=== PATIENT | male | born 1965 | race Caucasian/White ===

== ENCOUNTER 2023-03-28 10:13 | Emergency (ER) | payer OTHER ==
[~2023-03-28] VITALS: Ht 198.1 cm; Wt 135.0 kg
[2023-03-28] MEDS ORDERED: BACTRIM DS TAB1 EACH PO (10:59)
[2023-03-28 11:06] VITALS: BP 151/81
== END 2023-03-28 11:05 | disposition home or self-care (01) ==
LOC: ED 10:13
DX: L03.116 Cellulitis of left lower limb (principal); M10.9 Gout, unspecified; Z88.0 Allergy status to penicillin; Z88.5 Allergy status to narcotic agent; Z88.6 Allergy status to analgesic agent; Z86.14 Personal history of Methicillin resistant Staphylococcus aureus infection
CPT/HCPCS: 99283

== ENCOUNTER 2024-06-29 08:58 | Day surgery (SDC) | payer OTHER ==
[~2024-06-29] VITALS: Ht 198.1 cm; Wt 129.1 kg
[~2024-06-29 08:58] MED LIST: BACTRIM DS TAB1 EACH PO; CYCLOBENZAPRINE10 MG PO; GABAPENTIN600 MG PO; IBLOOD GLUCOSE TEST STRIP 1 EA TEST VI PRN; LACTATED RINGER'S 1,000 ML IV SCH; LIDOCAINE HCL 1% 5 ML SDV INJ ONE; OXYMETAZOLINE HCL 30 ML BTL NAS SCH; VIAGRA25 MG PO
[2024-06-29] MEDS ORDERED: CLINDAMYCIN HC300 MG PO (09:17)
[2024-06-29 09:19] VITALS: BP 134/99
[2024-06-29] MEDS ORDERED: ondansetron HCL 4 MG/2 ML VIAL ONE (09:51)
[2024-06-29] MEDS ORDERED: fentaNYL citrate 100 MCG/2 ML VIAL ONE (09:51)
[2024-06-29] MEDS ORDERED: DEXAMETHASONE SOD PHOS 4 MG/ML VIAL ONE (09:51)
[2024-06-29] MEDS ORDERED: LIDOCAINE HCL 2% 5 ML SDV ONE (09:51)
[2024-06-29] MEDS ORDERED: propofoL 200 MG/20 ML VIAL ONE (09:51)
[2024-06-29] MEDS ORDERED: ACETAMINOPHEN 1,000 MG/100 ML VIAL ONE (09:53)
[2024-06-29] MEDS ORDERED: METOCLOPRAMIDE HCL 10 MG/2 ML SDV ONE (10:02)
[2024-06-29] MEDS ORDERED: fentaNYL citrate 50 MCG/ML SDV IV PRN (10:30)
[2024-06-29] MEDS ORDERED: ondansetron HCL 4 MG/2 ML VIAL IV PRN (10:30)
[2024-06-29] MEDS ORDERED: NALOXONE HCL 0.4 MG SYR IV PRN (10:30)
[2024-06-29] MEDS ORDERED: IBLOOD GLUCOSE TEST STRIP 1 EA TEST VI PRN (10:30)
--- NOTE | 2024-06-29 10:43 | NUR ---
06/29/24 Mary3 Erin Blevins 1035-PATIENT ARRIVED TO PACU ON RA PLACED ON 6L MASK 92% AROUSES TO VERBAL STIMULI ENCOURAGED DEEP BREATHES PATIENT IS VERY DROWSY O2 SAT INCREASED TO 96%. IVF INFUSING. AFIB HR RANGING 115-130. PACKING TO RIGHT NARE INTACT. 1042-PATIENT ON 6L MASK 97% AFIB HR 102. PATIENT SLEEPING AROUSES TO VERBAL STIMULI WITH EYES CLOSED DENIES PAIN OR NAUSEA MUMBLES "WANT SOME COFFEE" DISCUSSED WAITNG UNTIL PATIENT WAKES UP. PATIENT DOZES BACK TO SLEEP DOES SNORE.
[2024-06-29 11:15] VITALS: BP 107/60
--- NOTE | 2024-06-29 11:27 | NUR ---
1115: PATIENT BACK IN DAY SURGERY ROOM FROM PACU. DENIES PAIN AT SURGICAL AREA. NASAL PACKING IN PLACE. TAPED TO RIGHT SIDE OF FACE. VS CHECKED. IV SITE WNL. SCDs ON. GIVEN COFFEE AND CRACKERS. CALL LIGHT WITHIN REACH.
--- NOTE | 2024-06-29 11:37 | OR ---
[facility] [address] [facility] [place], [place] [address] Signed DATE OF OPERATION: 06/29/2024 SURGEON: Eddie Morocho MD PREOPERATIVE DIAGNOSIS: Right intranasal lesion. POSTOPERATIVE DIAGNOSIS: Right intranasal lesion. PROCEDURE: Excision of right intranasal lesion. ANESTHESIA: General LMA; SECRETARY ADMINISTRATIVE ASSISTANT, Flex. PREOPERATIVE HISTORY: Ramesh is a -[id number] man with a large right intranasal papilloma. This was obstructive, very uncomfortable, nearly completely obstructive of the nasal passage. No abnormalities on the left side. He was taken to the operating room for the above-mentioned procedures. PROCEDURE AND FINDINGS: After informed consent, the patient was taken to the operating room, placed in supine position where general LMA anesthesia was induced. The patient and previous procedure were verified. The patient received preoperative intranasal oxymetazoline. Headlight speculum exam of the nasal cavity showed no abnormalities on the left side. On the right side, nasal cavity was nearly completely filled with papillomatous mass, appeared to be based on the septum in the vestibule anteriorly and up on the superior portion of the vestibule and also laterally on the anterior portion of the inferior turbinate. The lesion was excised sharply with a scalpel cutting off papillomas at the base. The complete removal was managed in this manner, and the specimen sent to Pathology. Bleeding was controlled with suction cautery. No further papilloma was identified anywhere in the nasal cavity. Bleeding was minimal. Trimmed Merocel pack placed coated with Neosporin. Pharynx was suctioned clear of blood secretions. The patient was then awakened, extubated, transported to recovery room in good condition. No complications. BLOOD LOSS: Minimal. Electronically Signed By: EDDIE MOROCHO MD 06/29/24 1137 PATIENT NAME: RAMESH BLANCHARD OPERATIVE REPORT DATE OF : 65 REPORT #: [id number] PHYSICIAN: EDDIE MOROCHO MD PCP: GENEVIEVE HAYES REPORT IS CONFIDENTIAL AND NOT TO BE RELEASED WITHOUT AUTHORIZATION [facility] [address] [facility], [place] [address] Signed SPECIMEN: To Pathology one piece of packing, right nostril. DRAINS: None. COMPLICATIONS: None. Eddie Morocho MD GC/MODL /[id number] Copies: ~ Electronically Signed By: EDDIE MOROCHO MD 06/29/24 1137 PATIENT NAME: RAMESH BLANCHARD OPERATIVE REPORT DATE OF : 65 REPORT #: [id number] PHYSICIAN: EDDIE MOROCHO MD PCP: GENEVIEVE HAYES REPORT IS CONFIDENTIAL AND NOT TO BE RELEASED WITHOUT AUTHORIZATION
[2024-06-29 12:05] VITALS: BP 123/80
--- NOTE | 2024-06-29 12:23 | NUR ---
1145: PATIENT TOLERATED COFFEE AND CRACKERS. DISCHARGE INSTRUCTIONS GIVEN TO PATIENT. 1155: STAND BY ASSIST WHILE PATIENT GOT OOB AND DRESSED. NORMAL BASELINE GAIT FOR PATIENT WITH HIS CANE. STAND BY ASSIST WHILE PATIENT WALKED TO BATHROOM USING CANE. VOID WITHOUT DIFFICULTY. STAND BY ASSIST WHILE PATIENT WALKED BACK TO ROOM. 1205: VS CHECKED. IV SITE WNL. TIP INTACT. DRESSING APPLIED. 1210: PATIENT DISCHARGED TO HOME VIA WHEELCHAIR WITH .
--- NOTE | 2024-06-30 19:45 | EKG ---
[facility] [address] [facility] [place], [place] [address] Signed Atrial fibrillation Right axis deviation Possible Anterior infarct , age undetermined Abnormal ECG No previous ECGs available Confirmed by Felipe Golden MD ([id number]) on 06/30/2024 7:45:07 PM Electronically Signed By: FELIPE GOLDEN MD 06/30/241944 PATIENT NAME: RAMESH BLANCHARD Electrocardiogram DATE OF : 65 PHYSICIAN: FELIPE GOLDEN MD REPORT #: [id number] REPORT IS CONFIDENTIAL AND NOT TO BE RELEASED WITHOUT AUTHORIZATION
--- NOTE | 2024-07-01 11:14 | PATH ---
[facility] [address] [facility] [place], [place] [address] Signed SPECIMEN(S): A RIGHT NOSTRIL SPECIMEN SOURCE: A. RIGHT NOSTRIL v CLINICAL HISTORY: Intranasal papilloma FINAL PATHOLOGIC DIAGNOSIS: Right nostril: - Sinonasal papilloma, exophytic type BRP MICROSCOPIC EXAMINATION: Histologic sections of all submitted blocks are examined by light microscopy. These findings, together with the gross examination, support the pathologic diagnosis. GROSS DESCRIPTION: The specimen, labeled and designated "Juan Luis, S., right nostril per requisition," is received in formalin and consists of a 2.5 x 2.3 x 1.2 cm area of manrique-white papillary tissue fragments. The suspected resection margin is inked blue and the specimen is serially section revealing a white homogenous cut surface. The specimen is entirely submitted in cassette A1 through A2. AA (under the direct supervision of a pathologist) The Gross Description was prepared using a voice recognition system. The report was reviewed for accuracy; however, sound-alike word errors, addition and/or deletions may occur. If there is any question about this report, please contact Client Services. ADDITIONAL NOTES: Immunohistochemical and/or in situ hybridization studies if performed in this case included appropriate positive controls that reacted as expected. This test was developed and its performance characteristics determined by [facility]. It has not been cleared or approved by the U.S. Food and Drug Administration. The FDA has determined that such clearance or approval is not necessary. This test is used for clinical purposes. It should not be regarded as investigational or for research. [facility] is certified under the PATIENT NAME: RAMESH BLANCHARD PATHOLOGY DATE OF : 65 REPORT #: [id number] PHYSICIAN: ELIZABETH QUINONES PCP: GENEVIEVE HAYES REPORT IS CONFIDENTIAL AND NOT TO BE RELEASED WITHOUT AUTHORIZATION [facility] [address] [place] [address] Signed Clinical Laboratory Improvement Amendments of 1988 (CLIA) as qualified to perform high complexity clinical laboratory testing. PERFORMING LABORATORY: Technical component was performed by [facility], [address] [place] [address] (CLIA# [id number]). Professional interpretation was performed by [facility], [address] [place] [address] (CLIA#: [id number]). Diagnostician: Rene Robin MD Pathologist Electronically Signed 07/01/2024 Copies: ~ PATIENT NAME: RAMESH BLANCHARD PATHOLOGY DATE OF : 65 REPORT #: [id number] PHYSICIAN: ELIZABETH QUINONES PCP: GENEVIEVE HAYES REPORT IS CONFIDENTIAL AND NOT TO BE RELEASED WITHOUT AUTHORIZATION
== END 2024-06-29 12:10 | disposition home or self-care (01) ==
LOC: DS 08:58 → OPS 08:58
PROVIDERS: ATTEND Otolaryngology
PROC: 09BK0ZZ Excision of Nasal Mucosa and Soft Tissue, Open Approach (ICD-10-PCS; principal; 2024-06-29 10:00)
DX: D14.0 Benign neoplasm of middle ear, nasal cavity and accessory sinuses (principal); I10 Essential (primary) hypertension; I48.91 Unspecified atrial fibrillation; Z88.0 Allergy status to penicillin; Z88.8 Allergy status to other drugs, medicaments and biological substances
CPT/HCPCS: 00160; 88304; 88305; 93005; 93010; J0131; J1100; J2003; J2405; J2704; J2765; J3010; J7121

== ENCOUNTER 2024-08-10 20:18 | Emergency (ER) | payer OTHER ==
[~2024-08-10] VITALS: Ht 198.1 cm; Wt 103.1 kg
[~2024-08-10 20:18] MED LIST changes: +CLINDAMYCIN HC300 MG PO; -IBLOOD GLUCOSE TEST STRIP 1 EA TEST VI PRN; -LACTATED RINGER'S 1,000 ML IV SCH; -LIDOCAINE HCL 1% 5 ML SDV INJ ONE; -OXYMETAZOLINE HCL 30 ML BTL NAS SCH
[2024-08-10 20:40] LABS: BASOPHILS 1.1 % (0-2); EOSINOPHILS 1.7 % (0-6); HEMATOCRIT 48.4 % (35.0-50.0); HEMOGLOBIN 17.2 g/dL (12.0-18.0); LYMPHOCYTES 27.5 % (24-44); MCH 30.6 (27-36); MCHC 35.4 g/dl (30-36); MCV 86.3 fl (81-99); MONOCYTES 8.5 % (0-12); NEUTROPHILS 61.2 % (39-80); PLATELET COUNT 324 K/uL (140-440); RBC 5.61 M/ul (4.3-5.7); RDW 13.7 (10.5-15.0)
[2024-08-10] MEDS ORDERED: LACTATED RINGER'S 1,000 ML IV ONE (20:45)
[2024-08-10] MEDS ORDERED: KETOROLAC TROMETHAMINE 30 MG/ML VIAL IV ONE (20:45)
[2024-08-10] MEDS ORDERED: SODIUM CHLORIDE 0.9% 1,000 ML IV ONE (20:45)
[2024-08-10 20:49] LABS: ALBUMIN 4.2 g/dL (3.4-5.0); ANION GAP 15.1 (7-21); BILIRUBIN, TOTAL 0.6 mg/dL (0.2-1.0); BUN/CREATININE RATIO 8.66 (6.0-28.6); CALCIUM 9.5 mg/dL (8.5-10.1); CREATININE, SERUM 1.27 mg/dL (0.70-1.30); POTASSIUM 4.1 mmol/L (3.5-5.1); PROTEIN, TOTAL 8.4 g/dL (6.4-8.2)
[2024-08-10] MEDS ORDERED: KETOROLAC TROME10 MG PO (21:38)
[2024-08-10] MEDS ORDERED: FLOMAX0.4 MG PO (21:38)
[2024-08-10 21:45] LABS: BILIRUBIN, URINE POSITIVE (negative); BLOOD/HGB, URINE LARGE (Negative); KETONE, URINE TRACE (Negative); LEUK ESTERASE, URINE NEGATIVE (negative); NITRITE, URINE NEGATIVE (negative)
[2024-08-10] MEDS ORDERED: TAMSULOSIN HCL 0.4 MG CAP PO ONE (21:45)
[2024-08-10 21:49] LABS: EPITHELIAL CELLS, URINE SQUAMOUS 1+ /lpf (0-1+)
[2024-08-10 21:50] LABS: BACTERIA, URINE RARE /hpf (negative); CASTS, URINE NONE SEEN \\lpf; COLLECTION TYPE, URINE CLEAN CATCH; CRYSTALS, URINE NONE SEEN (0-1+); RED BLOOD CELLS, URINE >50 /hpf (0-5); REFLEX CULTURE, URINE No (No)
[2024-08-10 22:20] VITALS: BP 126/81
== END 2024-08-10 22:21 | disposition home or self-care (01) ==
LOC: ED 20:18
PROVIDERS: Internal Medicine
DX: N13.2 Hydronephrosis with renal and ureteral calculous obstruction (principal); Z88.0 Allergy status to penicillin; Z88.5 Allergy status to narcotic agent; I10 Essential (primary) hypertension
CPT/HCPCS: 36415; 74176; 80053; 81001; 83690; 85025; 96374; 99284-25; J1885; J7121

== ENCOUNTER 2024-08-22 06:27 | Emergency (ER) | payer OTHER ==
[~2024-08-22] VITALS: Ht 198.1 cm; Wt 120.8 kg
[~2024-08-22 06:27] MED LIST changes: +FLOMAX0.4 MG PO; +KETOROLAC TROME10 MG PO
--- OUTSIDE RECORDS SUMMARY | 2024-08-22 06:34 | XMS ---
PreManage Notification: RAMESH BLANCHARD Security Pile Driver Events No recent Security Events currently on file CRITERIA MET - [facility] - 2 Visits in 30 Days CARE PROVIDERS -, [facility] Dentist: Electro Mechanical Technologist [facility] PHONE: [phone] -[place]- Dentist: Electro Mechanical Technologist Current [facility] PHONE: [phone] [facility]: [facility] FAMILY PHONE: [phone] Michelle has no Care Guidelines for this patient. E.D. VISIT COUNT (12 MO.) 2 [facility] TOTAL 2 NOTE: Visits indicate total known visits. ED/UCC VISIT TRACKING (12 MO.) 08/22/2024 06:28 [facility] [place] TYPE: Emergency COMPLAINT: - ABDOMINAL PAIN 08/10/2024 20:19 [facility] [place] TYPE: Emergency COMPLAINT: - ABDOMINAL PAIN DIAGNOSES: - Allergy status to narcotic agent - Allergy status to penicillin - Essential (primary) hypertension - Hydronephrosis with renal and ureteral calculous obstruction - Left lower quadrant pain INPATIENT VISIT TRACKING (12 MO.) No inpatient visits to display in this time frame [email or web address]
[2024-08-22] MEDS ORDERED: ondansetron HCL 4 MG/2 ML VIAL IV ONE (06:45)
[2024-08-22] MEDS ORDERED: HYDROmorphone HCL 1 MG/ML SYR IV ONE ×2 (06:45→07:30)
[2024-08-22] MEDS ORDERED: SODIUM CHLORIDE 0.9% 1,000 ML IV ONE (06:45)
[2024-08-22 07:04] LABS: BASOPHILS 0.5 % (0-2); EOSINOPHILS 0.8 % (0-6); HEMATOCRIT 50.4 % (35.0-50.0); HEMOGLOBIN 17.7 g/dL (12.0-18.0); LYMPHOCYTES 12.8 % (24-44); MCH 30.4 (27-36); MCHC 35.1 g/dl (30-36); MCV 86.6 fl (81-99); MONOCYTES 5.4 % (0-12); NEUTROPHILS 80.5 % (39-80); PLATELET COUNT 330 K/uL (140-440); RBC 5.81 M/ul (4.3-5.7); RDW 13.8 (10.5-15.0)
[2024-08-22 07:20] LABS: ALBUMIN 4.3 g/dL (3.4-5.0); ALBUMIN/GLOBULIN RATIO 1.08 (1.1-2.4); ANION GAP 15.1 (7-21); BILIRUBIN, TOTAL 0.4 mg/dL (0.2-1.0); BUN/CREATININE RATIO 10.38 (6.0-28.6); CALCIUM 9.4 mg/dL (8.5-10.1); CREATININE, SERUM 1.54 mg/dL (0.70-1.30); POTASSIUM 4.1 mmol/L (3.5-5.1); PROTEIN, TOTAL 8.3 g/dL (6.4-8.2)
[2024-08-22] MEDS ORDERED: PROCHLORPERAZINE EDISYLATE 10 MG/2 ML VIAL IV ONE (07:30)
[2024-08-22 08:35] LABS: BILIRUBIN, URINE NEGATIVE (negative); BLOOD/HGB, URINE LARGE (Negative); KETONE, URINE NEGATIVE (Negative); LEUK ESTERASE, URINE NEGATIVE (negative); NITRITE, URINE NEGATIVE (negative)
[2024-08-22 08:42] LABS: BACTERIA, URINE RARE /hpf (negative); CASTS, URINE HYALINE 2+ \\lpf; CRYSTALS, URINE CALCIUM OXALATE 1+ (0-1+); EPITHELIAL CELLS, URINE SQUAMOUS 1+ /lpf (0-1+)
[2024-08-22 08:43] LABS: COLLECTION TYPE, URINE CLEAN CATCH; REFLEX CULTURE, URINE No (No)
[2024-08-22] MEDS ORDERED: HYDROCODON-ACE1 EA10 PO (09:01)
[2024-08-22] MEDS ORDERED: FLOMAX0.4 MG PO (09:01)
[2024-08-22 09:03] VITALS: BP 113/81
== END 2024-08-22 09:03 | disposition home or self-care (01) ==
LOC: ED 06:27
PROVIDERS: Family Medicine
DX: R10.9 Unspecified abdominal pain (principal); I10 Essential (primary) hypertension; Z79.899 Other long term (current) drug therapy; Z88.5 Allergy status to narcotic agent; Z88.6 Allergy status to analgesic agent; Z88.0 Allergy status to penicillin
CPT/HCPCS: 36415; 74176; 80053; 81001; 85025; 96374; 96375; 96376; 99284-25; J0780; J1171; J2405; J7030

== ENCOUNTER 2024-12-27 08:52 | Emergency (ER) | payer OTHER ==
[~2024-12-27] VITALS: Ht 198.1 cm; Wt 120.8 kg
[~2024-12-27 08:52] MED LIST changes: +HYDROCODON-ACE1 EA10 PO
[2024-12-27] MEDS ORDERED: CIALIS5 MG PO (09:34)
[2024-12-27] MEDS ORDERED: COLCHICINE 0.6 MG TAB PO ONE (09:45)
[2024-12-27] MEDS ORDERED: ACETAMINOPHEN 500 MG TAB PO ONE (09:45)
[2024-12-27] MEDS ORDERED: HYDROCODON-ACE1 EA11 PO (11:35)
[2024-12-27] MEDS ORDERED: COLCHICINE0.6 M1 PO (11:35)
[2024-12-27 11:44] VITALS: BP 142/84
== END 2024-12-27 11:40 | disposition home or self-care (01) ==
LOC: ED 08:52
DX: M10.9 Gout, unspecified (principal); I10 Essential (primary) hypertension; Z88.0 Allergy status to penicillin; Z88.6 Allergy status to analgesic agent; Z88.5 Allergy status to narcotic agent; Z79.899 Other long term (current) drug therapy
CPT/HCPCS: 73630; 96372; 99283; A9270; J1171

== ENCOUNTER 2025-01-19 14:28 | Emergency (ER) | payer OTHER ==
[~2025-01-19] VITALS: Ht 198.1 cm; Wt 122.0 kg
--- NOTE | ~2025-01-19 | EKG ---
[facility] [address] [facility], [place] [address] Draft EK completed, results pending confirmation PATIENT NAME: LORAMESH Electrocardiogram DATE OF : 65 PHYSICIAN: PRELIMINARY REPORT #: [id number] REPORT IS CONFIDENTIAL AND NOT TO BE RELEASED WITHOUT AUTHORIZATION
[~2025-01-19 14:28] MED LIST changes: +CIALIS5 MG PO; +COLCHICINE0.6 M1 PO; +HYDROCODON-ACE1 EA11 PO
--- OUTSIDE RECORDS SUMMARY | 2025-01-19 14:35 | XMS ---
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 E.D. VISIT COUNT (12 MO.) 4 [facility] TOTAL 4 NOTE: Visits indicate total known visits. ED/UCC VISIT TRACKING (12 MO.) 01/19/2025 14:29 [facility] OR TYPE: Emergency COMPLAINT: - HEART RATE ISSUE 12/27/2024 08:52 [facility] OR TYPE: Emergency COMPLAINT: - RT FOOT PAIN DIAGNOSES: - Allergy status to analgesic agent - Allergy status to narcotic agent - Allergy status to penicillin - Essential (primary) hypertension - Gout, unspecified - Other ocean transportation intermediary (current) drug therapy - Pain in right foot 08/22/2024 06:28 [facility] [place] TYPE: Emergency COMPLAINT: - ABDOMINAL PAIN DIAGNOSES: - Allergy status to analgesic agent - Allergy status to narcotic agent - Allergy status to penicillin - Essential (primary) hypertension - Other halfway (current) drug therapy - Unspecified abdominal pain 08/10/2024 20:19 [facility] OR TYPE: Emergency COMPLAINT: - ABDOMINAL PAIN DIAGNOSES: - Allergy status to narcotic agent - Allergy status to penicillin - Essential (primary) hypertension - Hydronephrosis with renal and ureteral calculous obstruction - Left lower quadrant pain INPATIENT VISIT TRACKING (12 MO.) No inpatient visits to display in this time frame [email or web address]
[2025-01-19 14:46] LABS: BASOPHILS 0.9 % (0.2-1.2); EOSINOPHILS 2.7 % (0.8-7.0); LYMPHOCYTES 31.6 % (21.8-53.1); MCH 29.5 PG (25.7-32.2); MCHC 33.5 g/dL (32.3-36.5); MCV 88.0 fL (79.0-92.2); MONOCYTES 8.2 % (5.3-12.2); NEUTROPHILS 56.2 % (34.0-67.9); RBC 5.50 M/uL (4.63-6.08)
[2025-01-19 15:07] LABS: ALT (SGPT) 26.0 U/L (14-59); AST (SGOT) 18.0 U/L (15-37); GLOMERULAR FILTRATION RATE,EST 76.0 mL/min (>60); PROTEIN, TOTAL 7.8 g/dL (6.4-8.2); UREA NITROGEN 11.0 mg/dL (7-18)
[2025-01-19] MEDS ORDERED: SODIUM CHLORIDE 0.9% 500 ML IV PRN (15:15)
[2025-01-19 15:58] VITALS: BP 123/77
== END 2025-01-19 16:05 | disposition home or self-care (01) ==
LOC: ED 14:28
PROVIDERS: Emergency Medicine
DX: R00.1 Bradycardia, unspecified (principal); I20.89 Other forms of angina pectoris; I48.0 Paroxysmal atrial fibrillation; I10 Essential (primary) hypertension; F17.200 Nicotine dependence, unspecified, uncomplicated; Z88.0 Allergy status to penicillin; Z88.6 Allergy status to analgesic agent; Z88.5 Allergy status to narcotic agent; Z79.899 Other long term (current) drug therapy
CPT/HCPCS: 36415; 71045; 80053; 83735; 83880; 84484; 85025; 93005; 93010; 93246; 99284-25; J7040